=== PATIENT | female | born 1975 | race Caucasian/White ===

== ENCOUNTER 2019-09-13 05:07 | Inpatient (IN) | payer OTHER ==
[2019-09-09 12:41] VITALS: BMI 28.7
--- NOTE | 2019-09-13 08:36 | HP ---
History & Physical Update - Physical Physical: No Change - Assessment Assessment: No Change - Plan Plan: No Change (H&P reviwed , no changes , for supracervical abdominal hysterectomy , bilateral salpingectomy)
[2019-09-13] MEDS ORDERED: BUPIVACAINE HCL/PF 0.5% (5 MG/ML) 30 ML VIAL IJ ONE (10:36)
[2019-09-13] MEDS ORDERED: DEXAMETHASONE SOD PHOSPHATE/PF 10 MG/ML SDV ONE (10:36)
[2019-09-13] MEDS ORDERED: MIDAZOLAM HCL 2 MG/2 ML SINGLE DOSE VIAL ONE ×2 (10:38)
[2019-09-13] MEDS ORDERED: SUCCINYLCHOLINE CHLORIDE 200 MG/10 ML SYRINGE ONE (11:24)
[2019-09-13] MEDS ORDERED: ceFAZolin SODIUM 1 GM VIAL IVPB ONE (11:43)
[2019-09-13] MEDS ORDERED: DESFLURANE GAS 240 ML BOTTLE IH ONE (11:53)
[2019-09-13] MEDS ORDERED: DEXAMETHASONE SOD PHOSPHATE 4 MG/1 ML VIAL ONE (11:55)
[2019-09-13] MEDS ORDERED: GLYCOPYRROLATE 0.2 MG/1 ML VIAL ONE ×3 (11:55→12:26)
[2019-09-13] MEDS ORDERED: NEOSTIGMINE METHYLSULFATE 0.5 MG/ML - 10 ML MDV ONE (11:55)
[2019-09-13] MEDS ORDERED: ceFAZolin SODIUM 1 GM VIAL ONE ×2 (11:55)
[2019-09-13] MEDS ORDERED: HYDROmorphone HCl 2 MG/ML VIAL ONE (11:56)
[2019-09-13] MEDS ORDERED: ONDANSETRON 4 MG/2 ML VIAL IVPUSH PRN ×3 (13:40→14:33)
[2019-09-13] MEDS ORDERED: oxyCODONE HCL 5 MG TABLET PO PRN (13:41)
[2019-09-13] MEDS ORDERED: ELECTROLYTE-148 SOLN 1,000 ML IV SCH (13:45)
--- NOTE | 2019-09-13 13:47 | OP ---
Operative Note - Note: Operative Date: 09/13/19 Pre-Operative Diagnosis: pelvic pain, menorrhagia, fibroid uterus Operation: supracervical abdominal hysterectomy, bilateral salpingectomy Findings: 2 large fibroid Surgeon: Maynor Hancock Promotional Representative: Carrie Young Anesthesia: General Specimens Removed: uterus, both tubes Estimated Blood Loss (mls): 150 Drains & Tubes with Location: arizmendi Drains, Volume Out (mls): 150 Blood Volume Replaced (mls): 0 Fluid Volume Replaced (mls): 900 Operative Report Dictated: Yes
[2019-09-13] MEDS ORDERED: HYDROmorphone *PCA* 10MG/50ML DISP.SYRIN ONE (13:54)
[2019-09-13] MEDS ORDERED: HYDROmorphone *PCA* 10MG/50ML DISP.SYRIN PCA ONE (14:00)
[2019-09-13] MEDS ORDERED: DEXAMETHASONE SOD PHOSPHATE 4 MG/1 ML VIAL IVPUSH PRN (14:33)
[2019-09-13] MEDS ORDERED: HYDROmorphone *PCA* 10MG/50ML DISP.SYRIN PCA SCH (14:45)
[2019-09-13] MEDS ORDERED: LACTATED RINGERS SOLUTION 1,000 ML IV SCH (14:45)
[2019-09-13] MEDS: CEFAZOLIN 2 GM/D5W 2 GM/50 ML ML IVPB SCH (18:00)
[2019-09-13] MEDS: IBUPROFEN 800 MG/8 ML IJ IVPB PRN (22:03)
[2019-09-14] MEDS: CEFAZOLIN 2 GM/D5W 2 GM/50 ML ML IVPB SCH ×2 (01:00→10:00)
[2019-09-14] MEDS: IBUPROFEN 800 MG/8 ML IJ IVPB PRN (06:03)
[2019-09-14 07:42] LABS: BASO % 0.2 % (0-2.0); EOS % 0.1 % (0-4.5); HEMATOCRIT 34.1 % (32.4-45.2); HEMOGLOBIN 11.4 GM/dL (10.7-15.3); LYMPH % 23.7 % (8-40); MCH 31.7 pg (25.7-33.7); MCHC 33.5 g/dl (32.0-36.0); MEAN CELL VOLUME 94.7 fl (80-96); MEAN PLT VOLUME 8.9 fl (7.5-11.1); MONO % 13.5 % (3.8-10.2); NEUT % 62.5 % (42.8-82.8); PLATELET COUNT 176 K/MM3 (134-434); RDW 13.1 % (11.6-15.6); WHITE BLOOD COUNT 6.9 K/mm3 (4.0-10.0)
[2019-09-14 08:01] LABS: BLOOD UREA NITROGEN 9.4 mg/dL (7-18); CALCIUM 7.8 mg/dL (8.5-10.1); CREATININE 0.7 mg/dL (0.55-1.3); POTASSIUM 4.2 mmol/L (3.5-5.1)
[2019-09-14] MEDS ORDERED: PCA PUMP KEY 1 EACH EACH ONE (08:18)
--- NOTE | 2019-09-14 08:36 | PN ---
Progress Note (short form) - Note Progress Note: Post op day#1.S/P Hysterectomy under uneventful.Patient on dilaudid radio survey worker c/o pain score 3-4/10.Will Dc radio survey worker today and put patient on PO pain medication.No any anesthesia related problem.Patient Dc from the anesthesia care.
[2019-09-14] MEDS: ENOXAPARIN NA (PORCINE) 40 MG/0.4 ML DISP.SYRIN SQ SCH (09:18)
--- NOTE | 2019-09-14 10:55 | PN ---
Progress Note (short form) - Note Progress Note: pod 1 s/p supracervical abdominal hysterectomy . has low abdominal pain, not passing gas , no vaginal bleeding or discharge CBC, BMP 09/14/19 07:05 09/14/19 07:05 Last Vital Signs Temp Pulse Resp BP Pulse Ox 98.3 F 65 20 125/79 100 09/14/19 08:38 09/14/19 08:38 09/14/19 08:38 09/14/19 08:38 09/13/19 22:00 abdomen soft, no distension, no cva low abdominal tenderness , incision dry, clean no calf tenderness no vaginal discharge arizmendi clear urine plan ambulate advance diet pain management revaluate
[2019-09-14] MEDS: ACETAMINOPHEN 325 MG TABLET (FP) PO PRN ×3 (13:21→23:45)
[2019-09-14] MEDS: IBUPROFEN 600 MG TABLET (FP) PO PRN (13:22)
[2019-09-14] MEDS: oxyCODONE HCL 5 MG TABLET PO PRN ×2 (18:01→23:44)
[2019-09-15] MEDS: ACETAMINOPHEN 325 MG TABLET (FP) PO PRN ×2 (08:40→14:22)
[2019-09-15] MEDS: IBUPROFEN 600 MG TABLET (FP) PO PRN ×2 (08:41→14:21)
[2019-09-15] MEDS: ENOXAPARIN NA (PORCINE) 40 MG/0.4 ML DISP.SYRIN SQ SCH (09:03)
[2019-09-15 12:27] VITALS: BP 117/77; PULSE 76; TEMP 99.4
--- NOTE | 2019-09-15 13:36 | DS ---
Physical Exam-CUSTOMER CONSULTANT Vital Signs: Vital Signs Temperature 99.4 F 09/15/19 10:00 Pulse Rate 76 09/15/19 10:00 Respiratory Rate 20 09/15/19 10:00 Blood Pressure 117/77 09/15/19 10:00 O2 Sat by Pulse Oximetry (%) 100 09/13/19 22:00 Constitutional: Yes: Well Nourished, No Distress, Calm Eyes: Yes: WNL, Conjunctiva Clear, EOM Intact HENT: Yes: WNL, Atraumatic, Normocephalic Neck: Yes: WNL, Supple, Trachea Midline Cardiovascular: Yes: WNL, Regular Rate and Rhythm Respiratory: Yes: WNL, Regular, CTA Bilaterally Gastrointestinal: Yes: WNL ...Rectal Exam: Yes: WNL Renal/: Yes: WNL Breast(s): Yes: WNL Musculoskeletal: Yes: WNL Extremities: Yes: WNL Edema: No Integumentary: Yes: WNL Wound/Incision: Yes: Clean/Dry, Well Approximated, Sutures Intact Neurological: Yes: WNL, Alert, Oriented ...Motor Strength: WNL Psychiatric: Yes: WNL, Alert, Oriented Labs: CBC, BMP 09/14/19 07:05 09/14/19 07:05 Discharge Summary Reason For Visit: MENORRHAGIA Procedures: Principal: supracervical abdominal hysterectomy Other Procedures: bilateral salpingectomy Hospital Course: no complication Condition: Good - Instructions Diet, Activity, Other Instructions: regular diet, no intercorse, follow up office 2 weeks, if fever, heavy vaginal bleeding , severe pain call MD Referrals: Maynor Hancock MD [Staff Physician] - Disposition: HOME - Home Medications Comprehensive Discharge Medication List: Ambulatory Orders Cholecalciferol (Vitamin D3) [Vitamin D3] 2,000 unit PO DAILY 09/09/19 Cyanocobalamin (Vitamin B-12) [Vitamin B12] 1,000 mcg PO DAILY 09/09/19 Ibuprofen [Motrin -] 600 mg PO TID #90 tablet 09/14/19 Oxycodone HCl 5 mg PO PRN #20 tablet MDD 4 09/14/19
--- NOTE | 2019-09-15 16:00 | PATH ---
Surgical Pathology Report Patient Name: QUITA SORIANO [facility]. Rec. #: [id number] /Age/Gender: 1975 (Age: 43) / F Account: [id number] Location: [facility] OBS/SHANK FAKER Taken: 09/13/2019 Received: 09/13/2019 Reported: 09/15/2019 Physicians: Maynor Hancock M.D. Specimen(s) Received A: LEFT FALLOPIAN TUBE B: RIGHT FALLOPIAN TUBE C: UTERUS Clinical History Menorrhagia, fibroid, pelvic pain Final Diagnosis A. FALLOPIAN TUBE, LEFT, SALPINGECTOMY: UNREMARKABLE FALLOPIAN TUBE (INCLUDING FIMBRIATED END AND FULL LUMINAL PORTION). B. FALLOPIAN TUBE, RIGHT, SALPINGECTOMY: UNREMARKABLE FALLOPIAN TUBE (INCLUDING FIMBRIATED END AND FULL LUMINAL PORTION). C. UTERUS, ABDOMINAL SUPRACERVICAL HYSTERECTOMY: 302 G UTERUS. LEIOMYOMA(TA), INTRAMURAL. PROLIFERATIVE ENDOMETRIUM. ENDOCERVIX WITHOUT SIGNIFICANT PATHOLOGIC FINDINGS. Electronically Signed Catherine Fagan M.D. Gross Description A. Received in formalin labeled "left fallopian tube," is a 6 cm in length fimbriated fallopian tube. The outer surface is miranda-foster. Sectioning reveals an unremarkable lumen. Tester Vibrator Equipment sections are submitted in 2 cassettes as follows: 1-fimbria; 2-cross sections of fallopian tube. B. Received in formalin labeled "right fallopian tube," is a 7 cm in length fimbriated fallopian tube. The outer surface is miranda-foster. Sectioning reveals an unremarkable lumen. Tester Vibrator Equipment sections are submitted in 2 cassettes as follows: 1-fimbria; 2-cross sections of fallopian tube. C. Received in formalin labeled "uterus" is a 302 g supracervically amputated uterus without attached adnexa. The uterus measures 10 cm from superior to inferior, 6 cm from left to right, and 6 cm from anterior to posterior. The serosa is miranda-pink and smooth. The endometrial cavity measures 4 cm in length and 3 cm from cornu to cornu. The endometrium is miranda and lush, measuring up to 0.5 cm in thickness. The myometrium is miranda-pink and trabeculated, measuring up to 3.3 cm in thickness. Residual Endocervical canal which measures 1 cm in length and trabeculated mucosa is identified. The myometrium displays multiple intramural nodules, measuring up to 6 cm in greatest dimension. The cut surface of the nodules is miranda, rubbery and displays a whorled architecture. Focal degenerative changes present. No necrosis identified. Tester Vibrator Equipment sections are submitted in 13 cassettes as follows: 1-cervical stump margin of resection; 2--anterior endomyometrium; 3-posterior endomyometrium; 4-5- largest fibroid; 6- Tester Vibrator Equipment sections, smaller fibroids; 7- endocervical canal. MLTROY/09/13/2019 sanedie/09/13/2019
--- NOTE | 2019-09-15 16:12 | PN ---
Progress Note (short form) - Note Progress Note: spoke to phatmacy, first rx can not be filled as it written, new rx send
--- NOTE | 2019-09-19 15:52 | OP ---
DATE OF OPERATION: 09/13/2019 PREOPERATIVE DIAGNOSIS: Pelvic pain, menorrhagia, fibroid uterus. POSTOPERATIVE DIAGNOSIS: Pelvic pain, menorrhagia, fibroid uterus. ANESTHESIA: General. PROCEDURE: Supracervical abdominal hysterectomy, bilateral salpingectomy. ESTIMATED BLOOD LOSS: 150 mL. FINDINGS: Large uterus with multiple fibroids. OPERATION: The patient was taken to the operating room where after adequate general anesthesia the abdomen and perineum were prepped and draped. Pfannenstiel abdominal skin incision was made. Abdominal wall was cut layer by layer until the peritoneum was exposed and incised. Upon entry to the abdominal cavity, the upper abdomen was checked and normal. Bowels were packed away. The uterus was enlarged with multiple fibroids. One was on the fundal area and the other one on the left lateral uterine wall, extending to the broad ligament. Bladder was normal. Both her tubes and ovaries appeared to be normal. No pelvic adhesions were seen. The uterine cornu was grasped with 2 Tiesha clamps and the round ligament was identified bilaterally, clamped, and then cauterized with bipolar cautery, cut. The anterior leaf of the broad ligament was opened and the bladder was pushed down. The right and left tubes were removed by using bipolar LigaSure cautery, cauterizing along the mesosalpinx and the tubes were removed. The uteroovarian ligament was identified and then a hole was made in the broad ligament. Uteroovarian ligament was grasped with Migue clamp and cut. The clamp was replaced with 0 Vicryl ties and then with 0 Vicryl ligature suture. At this time, the bladder was further pushed down. The uterine artery was identified and clamped with Migue clamps, cut, and the clamp was replaced with 0 Vicryl suture bilaterally. Paracervical area was clamped with Migue clamps and cut. The clamp was replaced with 0 Vicryl suture bilaterally. The specimen was removed above the cervix and the cervix was sutured with first interrupted suture of 0 Vicryl and then with 2-0 Vicryl. Hemostasis was established. No active bleeding was seen. Pelvic cavity was several times irrigated. All pedicles were inspected with n bleeding. All of the lap pad, sponge, and instrument counts were correct. The peritoneum was closed with 0 Biosyn continuous suture. Muscles were brought together with interrupted suture of 0 Vicryl. The fascia was closed with 0 Vicryl continuous suture, subcutaneous fat with interrupted suture of 0 Vicryl, and the skin was closed with 3-0 Vicryl continuous subcuticular suture. Patient tolerated the procedure well and left the OR in good condition. ARLENE LOPEZ M.D. [id number]
== END 2019-09-15 13:45 | disposition home or self-care (01) | DRG 743 ==
LOC: JSAMEDAYSX 05:07 → J3W 17:04
PROVIDERS: ADMIT Obstetrics & Gynecology; ATTEND Obstetrics & Gynecology
PROC: 0UT70ZZ Resection of Bilateral Fallopian Tubes, Open Approach (ICD-10-PCS; 2019-09-13)
PROC: 0UT90ZL Resection of Uterus, Supracervical, Open Approach (ICD-10-PCS; principal; 2019-09-13 11:00)
DX: D25.9 Leiomyoma of uterus, unspecified (principal); N92.0 Excessive and frequent menstruation with regular cycle; R10.2 Pelvic and perineal pain
CPT/HCPCS: 36415; 80048; 84703; 85025; 86850; 86900; 86901; 94760